=== PATIENT | female | born 2005 ===

== ENCOUNTER 2024-03-03 23:48 | Emergency (ER) | payer SELFPAY ==
[2024-03-04] MEDS ORDERED: Acetaminophen 500 MG TAB ONE (00:17)
[2024-03-04] MEDS ORDERED: Ibuprofen 800 MG TAB ONE (00:17)
== END 2024-03-04 00:56 | disposition home or self-care (01) ==
LOC: ERS 23:48
DX: R07.89 Other chest pain (principal); F17.290 Nicotine dependence, other tobacco product, uncomplicated; V89.2XXA Person injured in unspecified motor-vehicle accident, traffic, initial encounter
CPT/HCPCS: 71046